=== PATIENT | male | born 1985 | race Caucasian/White ===

== ENCOUNTER 2024-09-15 16:19 | Emergency (ER) | payer OTHER, SELFPAY ==
[2024-09-15 16:21] VITALS: BP 182/109
[2024-09-15 16:50] LABS: Amphetamines Negative (Negative); Barbiturates Negative (Negative); Benzodiazepines Negative (Negative); Buprenorphine Negative (Negative); Cocaine Negative (Negative); Marijuana Negative (Negative); Methadone Negative (Negative); Methamphetamines Negative (Negative); Opiates Negative (Negative); Phencyclidine Negative (Negative); Tricyclic Antidepressants Negative (Negative)
[2024-09-15 16:56] LABS: Blood Urea Nitrogen 10 mg/dl (9-20); Calcium 9.6 mg/dl (8.4-10.2); Carbon Dioxide 25 mmol/L (22-30); Glucose 108 mg/dl (70-99); eGFR > 60.00
[2024-09-15 16:57] LABS: Alcohol None Detected
[2024-09-15 17:04] LABS: Chloride 104 mmol/L (98-107); Potassium 4.5 mmol/L (3.5-5.1); Sodium 140 mmol/L (135-145)
[2024-09-15 17:24] LABS: % Basophils 0.4 % (0-2); % Eosinophils 1.3 % (0-6); % Immature Granulocytes 0.2 % (0-0.5); % Lymphocytes 36.1 % (20.5-51.1); % Monocytes 8.7 % (1.7-9.3); % Neutrophils 53.3 % (42.2-75.2); Absolute Eosinophils 0.1 10^3/uL (0-0.7); Absolute Lymphocytes 1.9 10^3/uL (1.2-3.4); Absolute Monocytes 0.5 10^3/uL (0.1-0.6); Absolute Neutrophils 2.9 10^3/uL (1.4-6.5); Hematocrit 43.5 % (39.0-52.0); Hemoglobin 14.9 g/dL (13.0-18.0); Mean Corp Hgb Conc. 34.3 g/dL (33.0-37.0); Mean Corpuscular Hgb 28.5 pg (27.0-31.0); Mean Corpuscular Volume 83.3 fL (80.0-94.0); Mean Platelet Volume 9.1 fL (7.4-10.4); Nucleated Red Blood Cells % 0 % (-); Platelet Count 202 10^3/uL (130-400); Red Blood Cell Count 5.22 10^6/uL (4.70-6.10); Red Cell Dist. Width 13.2 % (11.5-14.5); White Blood Cell Count 5.4 10^3/uL (4.8-10.8)
--- NOTE | 2024-09-15 17:44 | ED.GENMED ---
History of Present Illness
General
Chief Complaint: Crisis Evaluation
Source: patient and other
Exam Limitations: none
Time Seen by Provider: 09/15/24 16:55
Nursing documentation reviewed up to this point in time: agreed with
History of Present Illness
History of Present Illness:
The patient is a 38-year-old man with a past medical history of bipolar disorder and chronic alcohol abuse. Patient reports he has been sober of alcohol for 4 months. Patient reports that he has been off all benzos for at least a month. Patient
is currently in a treatment center for both drug and alcohol abuse as well as mental health. Patient reports that he was given Vraylar for the first time a few days ago and since then, has had difficulty sleeping and is hearing voices. Reportedly,
he was sent here for an evaluation. Patient denies chest pain, shortness of breath and headache. Patient denies any feelings of withdrawal. He reports that none of his medications have been abruptly stopped. Patient denies suicidal and homicidal
thoughts. Patient has no other complaints.
Past History
Past History
ED Past Medical History: Psychiatric (Bipolar disorder)
ED Past Surgical History: Other
Social History
Tobacco: Smoker
Alcohol: Chronic alcoholic
Drug: Other
Personal: Single
Living: other (Currently living in a rehab facility for drugs, alcohol mental illness)
Employment: Other
Family History
Family History: Other
Review of Systems
Review of Systems
Allergies reviewed?: Yes
All Other Systems: ROS reviewed and negative except as documented in HPI and ROS
Constitutional: Reports sleep disturbance
EENT: Reports no symptoms
Respiratory: Reports no symptoms
Cardiac: Reports no symptoms
ABD/GI: Reports no symptoms
: Reports no symptoms
Musculoskeletal: Reports no symptoms
Skin: Reports no symptoms
Neurological: Reports no symptoms
Endocrine: Reports no symptoms
Hematologic/Lymphatic: Reports no symptoms
Psychiatric: Reports anxiety and hallucinations (Denies visual. States that he occasionally hears voices but does not elaborate on what the voices are saying.)
Phy Exam
Physical Exam
Physical Exam:
Physical Exam
General: no apparent distress, not acutely ill. calm and cooperative
Neck: supple. no meningeal signs. normal psoterior pharynx
Heart: s1/s2 regular rate and rhythm, no murmur. equal radial pulses.
Lungs: no acute respiratory distress. clear bilaterally
Abdomen: normal bowel sounds. not tender. no CVAT
Neuro: alert and oriented. no focal neurological deficits
Skin: no rash
Psychiatric: well kept. interactive and cooperative
Extremities: no edema. no calf tenderness. negative homans. good distal pulses
Course
Orders/Labs/Results
Orders:
Orders
09/15/24 16:24
1:1 Observation - Suicide/ Violent Behavior As Directed
Crisis Consult Urgent
Reason for Consult: +SI
09/15/24 16:27
Crisis Consult Urgent
Reason for Consult: crisis
09/15/24 16:32
Alcohol Urgent
Basic Metabolic Panel Urgent
Complete Blood Count/With Diff Urgent
Urine Drug Abuse Screen Urgent
Date Specimen was Collected: 09/15/24
Time Specimen was Collected: 16:27
Abnormal Lab Results
09/15/24
16:32
Glucose 108 H mg/dl
(70-99)
09/15/24 16:32
09/15/24 16:32
Vital Signs
Initial and Last Documented VS:
Initial Vital Signs
Temp Pulse Resp BP Pulse Ox
98.2 F 111 16 182/109 100
09/15/24 16:21 09/15/24 16:21 09/15/24 16:21 09/15/24 16:21 09/15/24 16:21
Last Documented Vital Signs
Temp Pulse Resp BP Pulse Ox
98.1 F 89 18 143/90 100
09/15/24 18:15 09/15/24 18:15 09/15/24 18:15 09/15/24 18:15 09/15/24 18:15
MDM/Problems Addressed
Differential Diagnosis Includes:
Acute on chronic debi, adverse drug reaction
MDM/Problems Addressed:
Patient presents with acute insomnia, feelings of agitation, and verbal hallucinations
Chronic conditions affecting care: Psychiatric illness
Acute Exacerbation and/or Progression of Chronic Illness: Psychiatric illness
*Pulse Oximetry
Patient hypoxic: no
*EKG
Interpreted by ED Provider?: NA
*[employer] Interpretation
Rate: [employer]- N/A
*Critical Care Note
Total Time (30-74mins, 75-104mins- exclusive of procedures): Not Applicable
Data Reviewed
Source: patient
Update Note
Update Note:
Patient looks stable, comfortable and medically well. He has been calm and cooperative in the ED. I see no sign of allergic reaction. It is unclear if the Vraylar is causing adverse effects or if he is experiencing debi and possibly psychosis
related to his chronic bipolar disorder. I feel patient can go back to his treatment center at this time to get further help for substance abuse and mental health issues.
ED Attending Note
-
Portions of this chart may have been created with voice recognition software.� Occasional wrong word or��sound alike� substitutions may have occurred due to the inherent limitations of voice recognition software.
Discharge Plan
Departure
Patient Disposition: Home (Routine Discharge)
Date of Disposition: 09/15/24
Time of Disposition: 17:37
Patient with high blood pressure during this ER visit?: Yes
Condition: Good
Covid-19: Not Applicable
Discharge Problem:
Manic episode
Instructions: Adverse Drug Reactions, Adult ED, Bipolar disorder - Discharge instructions, BLOOD PRESSURE
Activity Restrictions/Additional Instructions:
It is possible that the Vraylar has caused adverse effects for you such as insomnia, hallucinations, and agitation. Please follow the advice of your own psychiatrist in determining if this medication should be substituted for another medication to
treat your bipolar disorder.
Interventions
Interventions:
*Risk Screen - Suicide Last Done: 09/15/24 16:21
*General Assessment Last Done: 09/15/24 17:50
*Neglect/Abuse Screening Last Done: 09/15/24 16:21
*ED- Fall Risk Assessment Last Done: 09/15/24 17:50
*ED COVID-19 Vaccine History Last Done: 09/15/24 17:50
*Nursing Disposition Last Done: 09/15/24 18:15
ED-Psychological Assessment Last Done: 09/15/24 17:50
Discharge Date and Time
Discharge Date/Time: 09/15/24 18:20
Print Language: HUNGARIAN
[2024-09-15 17:50] VITALS: BMI 30.6
[2024-09-15 18:15] VITALS: BP 143/90
--- NOTE | 2024-09-15 18:15 | EDRN ---
Reviewed discharge instructions with patient. Verbalized understanding. Ambulated with steady gait to the lobby.
== END 2024-09-15 18:20 | disposition home or self-care (01) ==
LOC: EMR 16:19
PROVIDERS: Student in an Organized Health Care Education/Training Program; EMERGENCY PHYSICIAN Emergency Medicine
DX: F30.9 Manic episode, unspecified (principal); F17.200 Nicotine dependence, unspecified, uncomplicated; F10.10 Alcohol abuse, uncomplicated
CPT/HCPCS: 99283; 80048; 80306; 82077; 85025

== ENCOUNTER 2024-09-16 10:49 | Emergency (ER) | payer OTHER, SELFPAY ==
[2024-09-16 10:51] VITALS: BP 153/95
[2024-09-16 11:05] VITALS: BMI 30.5
--- NOTE | 2024-09-16 11:27 | ED.GENMED ---
History of Present Illness
<Juliette France PA-C - Last Filed: 09/16/24 14:07>
General
Chief Complaint: Crisis Evaluation
Source: patient
Exam Limitations: none
Time Seen by Provider: 09/16/24 10:59
Nursing documentation reviewed up to this point in time: agreed with
History of Present Illness
History of Present Illness:
Patient is a 38-year-old male history of anxiety, bipolar, previous suicide attempt from a please call the [facility] [place] which is a drug and alcohol rehab where he has been for the last 100 days with suicidal ideation and a plan to jump out of a
window. Patient says that he formally was on several psychiatric medicines but was taken off the Abilify and placed on Vraylar just 2 days ago. Is unclear when the Abilify was stopped. Patient says that ever since being on the Vraylar he has had
more intrusive thoughts. He came here yesterday and was seen by physician and had similar concerns however no specific plan
but he was having difficulty sleeping and hearing voice.
Patient was seen by the crisis center and had screening labs that were unremarkable. He was deemed safe to be discharged, was question whether this was side effects from the Vraylar.
Patient says over the last 24 hours he has had more thoughts of wanting to hurt himself and nearly jumped out of a window but someone stood next to him and thus he did not attempt. Patient has had previous suicidal attempts. He has no medical
complaints currently. He has been detoxed from benzos and alcohol for the last several months
Past History
<Juliette France PA-C - Last Filed: 09/16/24 14:07>
Past History
ED Past Medical History: Psychiatric (Bipolar disorder)
ED Past Surgical History: Other
Social History
Tobacco: Smoker
Alcohol: Chronic alcoholic
Drug: Other
Personal: Single
Living: other (Currently living in a rehab facility for drugs, alcohol mental illness)
Employment: Other
Family History
Family History: Other
Review of Systems
<Juliette France PA-C - Last Filed: 09/16/24 14:07>
Review of Systems
Allergies reviewed?: Yes
All Other Systems: Not applicable
Phy Exam
<Juliette France PA-C - Last Filed: 09/16/24 14:07>
Physical Exam
Physical Exam:
GENERAL: Alert , in no apparent distress
EYE: pupils equal and reactive
NECK: Supple
ENT: o/p clr, mmm.
CARDIAC: Regular rate and rhythm .
LUNGS: Clear breath sounds bilaterally, no acute respiratory distress, no wheezes/rales/rhonchi
ABDOMEN: Soft, without focal tenderness, no r/g, no cvat, normal bowel sounds
NEUROLOGICAL: Alert and oriented, no focal neuro deficits
SKIN: Warm and dry, skin intact.
MUSCULOSKELETAL: No edema, well perfused. neg rodrigo's sign
PSYCH: Flat affect
Course
<Juliette France PA-C - Last Filed: 09/16/24 14:07>
Orders/Labs/Results
Orders:
Orders
09/16/24 10:57
1:1 Observation - Suicide/ Violent Behavior As Directed
Crisis Consult Urgent
Reason for Consult: SI
Vital Signs
Initial and Last Documented VS:
Initial Vital Signs
Temp Pulse Resp BP Pulse Ox
98.7 F 100 18 153/95 100
09/16/24 10:51 09/16/24 10:51 09/16/24 10:51 09/16/24 10:51 09/16/24 10:51
Last Documented Vital Signs
Temp Pulse Resp BP Pulse Ox
98.7 F 74 14 136/80 98
09/16/24 10:51 09/16/24 19:28 09/16/24 19:28 09/16/24 19:28 09/16/24 19:28
<Perla Muñoz DO - Last Filed: 09/16/24 23:40>
Orders/Labs/Results
Orders:
Orders
09/16/24 10:57
1:1 Observation - Suicide/ Violent Behavior As Directed
Crisis Consult Urgent
Reason for Consult: SI
Vital Signs
Initial and Last Documented VS:
Initial Vital Signs
Temp Pulse Resp BP Pulse Ox
98.7 F 100 18 153/95 100
09/16/24 10:51 09/16/24 10:51 09/16/24 10:51 09/16/24 10:51 09/16/24 10:51
Last Documented Vital Signs
Temp Pulse Resp BP Pulse Ox
98.7 F 74 14 136/80 98
09/16/24 10:51 09/16/24 19:28 09/16/24 19:28 09/16/24 19:28 09/16/24 19:28
<Juliette France PA-C - Last Filed: 09/16/24 14:07>
MDM/Problems Addressed
Differential Diagnosis Includes:
suicidal ideation, medication side effect
MDM/Problems Addressed:
38 y/o M
h/o anxiety, depression, previous suicidal attempt
drug and alcohol abuse in rehab
claims to feel SI with plan to jump out o fwindow
pt ws here yesterday for some hallucinatoins and it was thought it was dside effect due to vralar which is new
pt was seen by crisis and cleared to go back to facility
today he endorses SI with plan to jmp out of window
labs done yesterday, unreamrkaable
will consult crisis and for now hold pt
09/16/2024 1407 PM
Patient is going to get placed inpatient per psych recommendation. Will hold until then.
<Perla Muñoz DO - Last Filed: 09/16/24 23:40>
Update Note
Update Note:
Reassessment (Perla Muñoz DO)
22:00 -patient allegedly came to the hospital this morning, history of bipolar and anxiety, reported suicidal ideations with intent. Patient had reported that he wanted to jump out of a window. Alerted by crisis team that patient no longer is
feeling this way and is requesting to go home. Patient is under a 201. Advised crisis team to have telepsych evaluate patient
23:35 - Per telepsych, allegedly okay for discharge. However evaluated patient myself, discussed his presenting complaint. He notes this morning while he was at his clinical, he was hearing voices, and subsequently went up to a window with
intention to jump out of it, ultimately did not do so. This is concerning behavior, reported history of suicidal attempts in the past. Unsafe disposition at home. In discussion with patient, did explain process of 302 versus 201. He reports that
he will continue to go voluntary. Patient is excepted at [place]
ED Attending Note
<Juliette France PA-C - Last Filed: 09/16/24 14:07>
-
Portions of this chart may have been created with voice recognition software.� Occasional wrong word or��sound alike� substitutions may have occurred due to the inherent limitations of voice recognition software.
Discharge Plan
Departure
Patient Disposition: Psych Facility
Date of Disposition: 09/16/24
Time of Disposition: 18:12
Discharge Problem:
Suicidal ideation
Referrals:
UNKNOWN - PT NOT,INTERVIEWE [Family Provider] -
Interventions
Interventions:
*Risk Screen - Suicide Last Done: 09/16/24 10:51
*General Assessment Last Done: 09/16/24 10:51
*Neglect/Abuse Screening Last Done: 09/16/24 10:51
ED-Psychological Assessment Last Done: 09/16/24 11:15
Discharge Date and Time
Print Language: MALTESE
[2024-09-16 19:28] VITALS: BP 136/80
== END 2024-09-17 01:14 ==
LOC: EMR 10:49
PROVIDERS: EMERGENCY PHYSICIAN Student in an Organized Health Care Education/Training Program
DX: R45.851 Suicidal ideations (principal); F31.9 Bipolar disorder, unspecified; F17.200 Nicotine dependence, unspecified, uncomplicated; Z91.51 Personal history of suicidal behavior
CPT/HCPCS: 99285